=== PATIENT | female | born 1975 | race Caucasian/White ===

== ENCOUNTER 2018-01-31 18:04 | Emergency (ER) | payer MEDICAID ==
[~2018-01-31] VITALS: Ht 162.6 cm; Wt 83.9 kg
[2018-01-31 18:07] VITALS: BP 157/103
--- NOTE | 2018-01-31 18:20 | NUR ---
PATIENT PRESENTS TO ED WITH C/O CHRONIC VAGINAL D/C AND LOW BACK PAIN. PMH VAGINAL CANDIASIS; DENIES N/V/D; SKIN IS PINK/WARM/DRY; AAOX4 WITH EVEN AND STEADY GAIT; LUNGS CLEAR BL; HR EVEN AND REGULAR; PT DENIES ANY FEVER, CP, SOB, OR COUGH AT THIS TIME; PATIENT STATES PAIN OF 6/10 AT THIS TIME; VSS; PATIENT POSITIONED FOR COMFORT; HOB ELEVATED; BEDRAILS UP X2; BED DOWN. ER MD MADE AWARE OF PT STATUS.
--- NOTE | 2018-01-31 18:39 | NUR ---
DR HAWKINS EVALUATING AAO PT AT BEDSIDE
[2018-01-31 19:29] LABS: BASOPHILS % (AUTO) 0.5 % (0.0-2.0); EOSINOPHILS # (AUTO) 0.1 K/uL (0-0.4); EOSINOPHILS % (AUTO) 1.6 % (0.0-4.0); HEMATOCRIT 47.7 % (36-48); HEMOGLOBIN 15.9 g/dL (12.0-16.0); LYMPHOCYTES # (AUTO) 2.2 K/uL (2.5-16.5); LYMPHOCYTES % (AUTO) 35.3 % (20.5-51.1); MEAN CORPUSCULAR HEMOGLOBIN 32 pg (27-31); MEAN CORPUSCULAR HGB CONC 33 g/dL (33-37); MEAN CORPUSCULAR VOLUME 94.4 fL (80-94); MONOCYTES # (AUTO) 0.3 K/uL (0.8-1.0); MONOCYTES % (AUTO) 5.6 % (1.7-9.3); NEUTROPHILS # (AUTO) 3.6 K/uL (1.8-7.7); PLATELET COUNT (AUTO) 255 K/uL (140-450); RED BLOOD CELL COUNT(AUTO) 5.05 MIL/uL (4.20-5.40); RED CELL DISTRIBUTION WIDTH 13.1 % (11.6-13.7); WHITE BLOOD COUNT (AUTO) 6.3 K/uL (4.8-10.8)
[2018-01-31 19:37] LABS: APPEARANCE,URINE CLEAR (CLEAR); BILIRUBIN,URINE NEGATIVE (NEGATIVE); BLOOD, URINE NEGATIVE (NEGATIVE); COLOR,URINE YELLOW (YELLOW); LEUKOCYTE ESTERASE ,URINE NEGATIVE (NEGATIVE); NITRITE, URINE NEGATIVE (NEGATIVE); UGLUCOSE NEGATIVE (NEGATIVE)
[2018-01-31 19:40] LABS: ANION GAP 13.2 (8-16); CARBON DIOXIDE 25.6 mmol/L (21-32); CREATININE 0.9 mg/dL (0.6-1.3); POTASSIUM 3.8 mmol/L (3.5-5.1)
--- NOTE | 2018-01-31 19:50 | NUR ---
AWAITING DISCHARGE DISPOSITION FROM DR CHENEY.
--- NOTE | 2018-01-31 20:09 | NUR ---
Dr. Redman evaluating patient at bedside.
[2018-01-31 20:40] VITALS: BP 148/84
--- NOTE | 2018-01-31 20:40 | NUR ---
Patient discharged with v/s stable. Written and verbal after care instructions given and explained. Patient verbalized understanding. Ambulatory with steady gait. All questions addressed prior to discharge. Advised to follow up with PMD.
== END 2018-01-31 20:40 | disposition home or self-care (01) ==
LOC: MED 18:04
DX: Z00.00 Encounter for general adult medical examination without abnormal findings (principal); N18.9 Chronic kidney disease, unspecified
CPT/HCPCS: 36415; 80048; 81003; 81025; 85025; 99284

== ENCOUNTER 2018-07-02 08:02 | Emergency (ER) | payer SELFPAY ==
[~2018-07-02] VITALS: Ht 160 cm; Wt 78.0 kg
[2018-07-02 08:15] VITALS: BP 134/94
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
[2018-07-02 09:19] VITALS: BP 131/91
--- NOTE | 2018-07-02 09:19 | NUR ---
Patient discharged with v/s stable. Written and verbal after care instructions given and explained. Patient alert, oriented and verbalized understanding of instructions. Ambulatory with steady gait. All questions addressed prior to discharge. ID band removed. Patient advised to follow up with PMD. Rx of PREDNISONE, NYSTATIN, BENADRYL& MEBENDAZOLE given. Patient educated on indication of medication including possible reaction and side effects. Opportunity to ask questions provided and answered.
== END 2018-07-02 09:19 | disposition home or self-care (01) ==
LOC: MED 08:02
DX: B79 Trichuriasis (principal); R68.83 Chills (without fever); R11.0 Nausea; N18.9 Chronic kidney disease, unspecified; Z88.0 Allergy status to penicillin; Z90.710 Acquired absence of both cervix and uterus
CPT/HCPCS: 99283

== ENCOUNTER 2018-11-01 13:37 | Emergency (ER) | payer SELFPAY ==
[~2018-11-01] VITALS: Ht 162.6 cm; Wt 77.1 kg
[2018-11-01 14:05] VITALS: BP 116/85
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
--- NOTE | 2018-11-01 14:19 | NUR ---
PATIENT AMBULATED TO ER BED 1
--- NOTE | 2018-11-01 14:29 | NUR ---
to xray via w/c narinder aguilar.awaits test results,reevaluations.
--- NOTE | 2018-11-01 14:48 | NUR ---
pt back from xray and states she is still unable to urinate.awaits reevaluations.
--- NOTE | 2018-11-01 15:29 | NUR ---
resting asleep on her rt side,nad.awaits test results,reevaluations.
--- NOTE | 2018-11-01 17:07 | NUR ---
pt tolerated procedures with no incidents.upon er md reevaluations pt d/c'ed with rx,instructions and to follow up with pmd/clinic for checkup further evaluations.ambulates on her own and states she undewrstands instructions and will comply.[facility] if conditions worsens/emergencies.narinder aguilar.
[2018-11-01 17:12] VITALS: BP 126/86
== END 2018-11-01 17:07 | disposition home or self-care (01) ==
LOC: MED 13:37
DX: R10.9 Unspecified abdominal pain (principal); N18.9 Chronic kidney disease, unspecified; Z88.0 Allergy status to penicillin; Z90.49 Acquired absence of other specified parts of digestive tract
CPT/HCPCS: 74022; 99284

== ENCOUNTER 2019-09-23 17:42 | Emergency (ER) | payer MEDICAID ==
[~2019-09-23] VITALS: Ht 162.6 cm; Wt 81.6 kg
[2019-09-23 18:29] VITALS: BP 161/104
--- NOTE | 2019-09-23 18:37 | NUR ---
WAIT AT LOBBY.
--- NOTE | 2019-09-23 20:11 | NUR ---
pt called from lobby, no response, pt lwbs
--- NOTE | 2019-09-23 20:11 | NUR ---
PATIENT LEFT WITHOUT BEING SEEN BY DR. gorman. NO FURTHER CARE PROVIDED FOR PATIENT.
--- NOTE | 2019-09-23 21:00 | NUR ---
PATIENT FOUND IN LOBBY, BROUGHT TO BED 12
[2019-09-23 22:13] VITALS: BP 161/104
--- NOTE | 2019-09-23 22:13 | NUR ---
Patient seen, treated, and discharged by Dr Steele. Patient discharged with v/s stable. Written and verbal after care instructions about bronchitis given and explained. Patient alert, oriented and verbalized understanding of instructions. Ambulatory with steady gait. All questions addressed prior to discharge. ID band removed. Patient advised to follow up with PMD. Rx of Lucinda Anthony given. Patient educated on indication of medication including possible reaction and side effects. Opportunity to ask questions provided and answered.
--- NOTE | 2019-09-23 22:13 | NUR ---
Note maxwell in EDM - 09/23/19 at 2323 by [facility] Discharge done by Dr Steele. Patient discharged with v/s stable. Written and verbal after care instructions about bronchitis given and explained. Patient alert, oriented and verbalized understanding of instructions. Ambulatory with steady gait. All questions addressed prior to discharge. ID band removed. Patient advised to follow up with PMD. Rx of Lucinda Anthony given. Patient educated on indication of medication including possible reaction and side effects. Opportunity to ask questions provided and answered.
== END 2019-09-23 22:13 | disposition home or self-care (01) ==
LOC: MED 17:42
DX: J20.9 Acute bronchitis, unspecified (principal); F17.210 Nicotine dependence, cigarettes, uncomplicated; Z88.0 Allergy status to penicillin; Z71.6 Tobacco abuse counseling
CPT/HCPCS: 99283